=== PATIENT | female | born 1940 | race Caucasian/White ===

== ENCOUNTER 2016-07-14 11:02 | Day surgery (SDC) | payer MEDICARE, OTHER ==
[~2016-07-14 11:02] MED LIST: ADULT LOW DOSE81 M1 PO; ADULT LOW DOSE81 MG PO; ATENOLOL25 M1 PO; BENADRYL25 M3 PO; BENADRYL25 MG/TA1 PO; CELEBREX200 M1 PO; CELEBREX200 MG PO; CLARITIN10 M8 PO; COQ1050 MG PO; CRESTOR5 M1 PO; DULOXETINE HCL30 M1 PO; FISH OIL1 CAP PO; FLONASE16 GM NS; FUROSEMIDE20 MG PO; HYDROCODON-ACE1 EA16 PO; INSTAFLEX PO; LOMOTIL1 TA3 PO; LOPID600 M1 PO; LOPID600 MG PO; MONOLAURIN PO; MULTIVITAMIN1 TAB PO; MULTIVITAMINS1 EAC6 PO; NEURONTIN300 M1 PO; NORVASC10 MG PO; O2; OMEPRAZOLE40 M1 PO; OMEPRAZOLE40 M2 PO; SYSTANE BALANCE10 ML OP; TENORMIN25 MG PO; TRAMADOL HCL50 MG PO; TYLENOL PM EX-1 EAC4 PO; TYLENOL500 MG PO; VALIUM5 M1 PO; VALIUM5 MG PO; VITAMIN C PO; VITAMIN C1000 M1 PO; VITAMIN D33000 UNI1 PO; VITAMIN D400 UNI1 PO; ZETIA10 M1 PO; ZETIA10 MG PO; ZOFRAN ODT4 MG/UDTAB PO
[2016-07-14 12:47] LABS: INR 0.9 INR (0.9-1.1)
[2016-08-14] MEDS ORDERED: CALCIUM CARBON500 M2 PO (13:28)
[2016-08-14] MEDS ORDERED: CELEBREX200 M1 PO (13:32)
[2016-08-14] MEDS ORDERED: FLONASE ALLERG9.9 ML (13:33)
[2016-08-14] MEDS ORDERED: NEURONTIN100 M1 PO (13:34)
[2016-08-14] MEDS ORDERED: ULTRAM50 M1 PO (13:35)
== END 2016-07-14 15:00 ==
LOC: CTSCAN 11:02 → SHSB 11:03
PROVIDERS: Radiology Diagnostic Radiology
PROC: 0QB20ZX Excision of Right Pelvic Bone, Open Approach, Diagnostic (ICD-10-PCS; principal; 2016-07-14)
DX: M89.8X8 Other specified disorders of bone, other site (principal); I10 Essential (primary) hypertension; E78.5 Hyperlipidemia, unspecified; M19.90 Unspecified osteoarthritis, unspecified site; M81.0 Age-related osteoporosis without current pathological fracture; I25.10 Atherosclerotic heart disease of native coronary artery without angina pectoris; J84.112 Idiopathic pulmonary fibrosis; Z79.899 Other long term (current) drug therapy; Z90.49 Acquired absence of other specified parts of digestive tract; Z87.442 Personal history of urinary calculi; Z79.891 Long term (current) use of opiate analgesic; Z98.890 Other specified postprocedural states
CPT/HCPCS: C1830; J1200; J2250; J3010; J7030

== ENCOUNTER 2016-08-17 09:22 | Day surgery (SDC) | payer MEDICARE, OTHER ==
[~2016-08-17 09:22] MED LIST changes: +CALCIUM CARBON500 M2 PO; +FLONASE ALLERG9.9 ML; +NEURONTIN100 M1 PO; +ULTRAM50 M1 PO
[2016-08-17 11:01] LABS: BASO % 0.6 % (0-2); EOS % 2.3 % (0-7); EOSINOPHIL ABSOLUTE COUNT 0.1 tho/cmm (0.0-0.7); HCT-HEMATOCRIT 33.4 % (34.0-49.0); HGB-HEMOGLOBIN 10.3 gm/dl (12.0-15.5); IMMATURE GRANULOCYTES ABSOLUTE 0.01 tho/cmm (0-0.03); IMMATURE GRANULOCYTES PERCENT 0.2 % (0-0.3); LYMPH % 24.5 % (20-45); LYMPH ABSOLUTE COUNT 1.5 tho/cmm (0.8-4.5); MCH (MEAN CORPUSCULAR HGB) 25.6 pg (28.0-32.0); MCHC MEAN CORPUSCULAR HGB CONC 30.8 % (32.0-36.0); MCV (MEAN CELL VOLUME) 82.9 fl (82.0-96.0); MEAN PLATELET VOLUME 9.5 cmc (9.4-12.4); MONO % 7.6 % (0-12); MONOCYTE ABSOLUTE COUNT 0.5 tho/cmm (0.0-1.2); NEUTROPHILS % 64.8 % (40-80); PLATELET COUNT 261 tho/cmm (150-450); RED BLOOD COUNT 4.03 mil/cmm (4.00-5.20); RED CELL DISTRIBUTION WIDTH 17.1 % (12.4-16.4); WHITE BLOOD COUNT 6.2 tho/cmm (4.0-10.0)
[2016-08-17 11:11] LABS: INR 0.9 INR (0.9-1.1); PROTHROMBIN TIME 10.1 SECONDS (9.0-13.6)
== END 2016-08-17 14:10 ==
LOC: CTSCAN 09:22 → SHSB 09:23
PROVIDERS: Radiology Diagnostic Radiology
PROC: 0QB23ZX Excision of Right Pelvic Bone, Percutaneous Approach, Diagnostic (ICD-10-PCS; principal; 2016-08-17)
DX: M89.8X8 Other specified disorders of bone, other site (principal); C67.9 Malignant neoplasm of bladder, unspecified; E78.5 Hyperlipidemia, unspecified; I10 Essential (primary) hypertension; Z90.49 Acquired absence of other specified parts of digestive tract; Z96.611 Presence of right artificial shoulder joint; Z96.612 Presence of left artificial shoulder joint; Z90.710 Acquired absence of both cervix and uterus; Z96.641 Presence of right artificial hip joint; Z79.82 Long term (current) use of aspirin; Z79.899 Other long term (current) drug therapy; Z87.891 Personal history of nicotine dependence
CPT/HCPCS: J2250; J3010; J7030